=== PATIENT | male | born 2005 | race Caucasian/White ===

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

== ENCOUNTER 2024-01-12 18:32 | Emergency (ER) | payer SELFPAY ==
[2024-01-12 18:45] VITALS: BP 145/76; PULSE 78; RESP 16; TEMP 36.7; O2SAT 96; BMI 32.1
[2024-01-12 19:02] LABS: Basophils % 0.4 %; Eosinophils # 0.1 10^3/uL (0.0-0.8); Eosinophils % 0.8 %; Hematocrit 47.7 % (37-53); Lymphocytes # 2.1 10^3/uL (1.5-6.5); Lymphocytes % 28.5 %; Mean Corpuscular HGB Conc 32.7 g/dL (30-55); Mean Corpuscular Hemoglobin 27.5 pg (27-33); Mean Corpuscular Volume 84.1 fl (82-101); Mean Platelet Volume 11.1 fL (7.4-10.4); Monocytes # 0.6 10^3/uL (0.2-0.9); Monocytes % 7.6 %; Neutrophils # 4.52 10^3/uL (1.8-8.0); Neutrophils % 62.4 %; Nucleated Red Blood Cells % 0 %; Platelet Count 263 10^3/cmm (157-399); Red Blood Count 5.67 10^6/uL (3.85-5.65); Red Cell Distribution Width 13.4 % (12.1-15.1); White Blood Count 7.24 10^3/uL (4.5-13.0)
[2024-01-12 19:21] LABS: Alanine Aminotransferase 43 U/L (0-41); Albumin Level 4.8 g/dL (3.5-5.2); Alkaline Phosphatase 136 U/L (40-130); Anion Gap 16.2 (5-19); Aspartate Amino Transferase 33 U/L (0-40); Blood Urea Nitrogen 9 mg/dL (6-20); Calcium 9.9 mg/dL (8.5-10.5); Carbon Dioxide 26 mmol/L (22-29); Chloride 100 mmol/L (98-107); Creatinine Clr Calc Pharmacy 285.6474; Glomerular Filtration Rate 214.2 mL/min (90-130); Glucose 98 mg/dL (65-115); Lipase 14 U/L (13-60); Osmolality Calculated 285 mOsm/kg (285-295); Potassium 4.2 mmol/L (3.5-5.1); Sodium 138 mmol/L (136-145); Total Bilirubin 0.7 mg/dL (0.15-1.2); Total Protein 7.8 g/dL (6.6-8.7)
--- NOTE | 2024-01-12 19:30 | CTR_ITS ---
PROCEDURE INFORMATION: Exam: CT Abdomen And Pelvis With Contrast Exam date and time: 01/12/2024 7:47 PM Age: 18 years old Clinical indication: Abdominal pain; Additional info: Rlq pain TECHNIQUE: Imaging protocol: Computed tomography of the abdomen and pelvis with contrast. Radiation optimization: All CT scans at this facility use at least one of these dose optimization techniques: automated exposure control; mA and/or kV adjustment per patient size (includes targeted exams where dose is matched to clinical indication); or iterative reconstruction. Contrast material: OMNI 350; Contrast volume: 100 ml; Contrast route: INTRAVENOUS (IV); COMPARISON: CT abdomen pelvis w con* [id number] 03/25/2019 11:07 AM RADIATION DOSE METRICS: Total DLP (mGy-cm): 859 FINDINGS: Liver: Normal. No mass. Gallbladder and biliary ducts: Normal. No calcified stones. No ductal dilation. Pancreas: Normal. No ductal dilation. Spleen: Normal. No splenomegaly. Adrenal glands: Normal. No mass. Kidneys and ureters: Normal. No hydronephrosis. Stomach and bowel: Large rectal stool burden. No evidence of small bowel obstruction. Appendix: Status post appendectomy. Intraperitoneal space: Unremarkable. No free air. No significant fluid collection. Vasculature: Unremarkable. No abdominal aortic aneurysm. Lymph nodes: Unremarkable. No enlarged lymph nodes. Urinary bladder: Unremarkable as visualized. Reproductive: Unremarkable as visualized. Bones/joints: Unremarkable. No acute fracture. Soft tissues: Unremarkable. CT/CT abdomen pelvis w con* [id number] IMPRESSION: No acute findings within the abdomen or pelvis. Large rectal stool burden.
--- NOTE | 2024-01-12 19:37 | ED_ITS ---
HPI - Abdominal Pain 2 General: Chief Complaint: Abdominal Pain Stated Complaint: abd pain Time Seen by Provider: 01/12/24 19:28 Source: patient Mode of arrival: ambulatory History of Present Illness: 18-year-old male states been having abdo shanell pain since yesterday. He states it started in his epigastric region, radiates to his flank currently. Has had some nausea he rates his pain a 6 out of 10 currently denies any worse improving factors denies any fevers. Associated Symptoms: Reports nausea; Denies chills, diarrhea, dysuria, fever(s) and vomiting Related Data Previous Rx's Medication Instructions Recorded linaclotide 145 mcg capsule 145 mcg PO DAILY 30 days #30 caps 11/17/23 (Linzess) fluoxetine 20 mg capsule (Prozac) 20 mg PO DAILY #30 caps 12/15/23 fluoxetine 40 mg capsule (Prozac) 40 mg PO DAILY #30 caps 12/15/23 polyethylene glycol 3350 17 gram 17 g PO DAILY #14 ea 01/12/24 oral powder packet (Miralax) Allergies Allergy/AdvReac Type Severity Reaction Status Date / Time No Known Allergies Allergy Verified 12/15/23 08:42 Review of Systems 2 Const: Denies: fever(s), chills, body aches or change in appetite ENMT: Denies: throat pain or dental pain Card: Denies: chest pain Resp: Denies: dyspnea GI: Reports: abdominal pain and nausea; Denies: vomiting or diarrhea : Denies: dysuria Musc: Denies: neck pain or back pain Skin/Breast: Denies: rash Neuro: Denies: headache(s) PFSH ED 2 PFSH: Medical History Constipation Diarrhea Psychiatric care Obsessive compulsive disorder Generalized anxiety disorder with panic attacks Surgical History History of appendectomy Family History Father CAD (coronary artery disease) Mother Chronic kidney disease (CKD) Diabetes Hyperlipidemia Hypertension Stroke Grandfather Diabetes Hypertension Grandmother Diabetes Hyperlipidemia Hypertension Lung disease asthma Stroke Denies family history of Clotting disorder Dementia Psychiatric illness Anesthesia complication Bleeding disorder Cancer Social History Smoking and tobacco/nicotine status: never used tobacco/nicotine Alcohol intake: never Substance/Drug Use: never Lives independently: Yes Current occupational status: unemployed Physical Exam 2 Const: COMMON NORMALS: no acute distress, patient oriented x3 and healthy appearing HENMT: COMMON NORMALS: normocephalic and atraumatic HEAD & SCALP: n ormocephalic and atraumatic Eye: COMMON NORMALS: conjunctivae normal CONJUNCTIVA: Yes conjunctivae normal Neck/C-Spine: COMMON NORMALS: full ROM and supple Chest: COMMONS NORMALS: normal inspection of the chest Resp: COMMON NORMALS: normal respiratory effort, No retractions, No use of accessory muscles and clear to auscultation bilaterally AUSCULTATION: clear to auscultation bilaterally Cardio: COMMON NORMALS: regular rate, regular rhythm and No murmurs present (Cardio) RATE: regular rate RHYTHM: regular rhythm GI: COMMON NORMALS: Normal to inspection, nondistended, normoactive bowel sounds present, Soft to palpation and no masses PALPATION: Yes Soft to palpation OTHER: mild diffuse tenderness Extremity: COMMON NORMALS: normal to inspection and full ROM Neuro: COMMON NORMALS: patient oriented x3, moves all extremities and no focal motor deficits Psych: COMMON NORMALS: mental status grossly normal, Normal thought process present and cooperative THOUGHT PROCESS: Normal thought process present Skin: COMMON NORMALS: no rashes or lesions noted and no wounds GENERAL SKIN EXAM: no rashes or lesions noted Course 2 Vital Signs: Vital signs: Vital Signs Temperature 98.1 F 01/12/24 18:45 Pulse Rate 82 01/12/24 20:02 Respiratory Rate 16 01/12/24 20:02 Blood Pressure 146/85 01/12/24 20:02 Pulse Oximetry 97 01/12/24 20:02 Oxygen Delivery Me thod Room Air 01/12/24 20:02 MDM - Abdominal Pain Medical Decision Making Patient presents here with abdominal pain CT shows constipation no other findings. He is well-appearing here blood works normal we will place him on MiraLAX he stable for discharge follow-up with PCP return if worsening. Medical Records I reviewed the patient's medical records. Lab Data I reviewed the patient's lab results. 01/12/24 18:54 01/12/24 18:54 Labs/Radiology: Radiology Impressions Abdomen/Pelvis CT 01/12/24 19:30 IMPRESSION: No acute findings within the abdomen or pelvis. Large rectal stool burden. Laboratory Results WBC 7.24 10^3/uL (4.5-13.0) 01/12/24 18:54 RBC 5.67 10^6/uL (3.85-5.65) H 01/12/24 18:54 Hgb 15.60 g/dL (13.2-15.6) 01/12/24 18:54 Hct 47.7 % (37-53) 01/12/24 18:54 MCV 84.1 fl (82-101) 01/12/24 18:54 MCH 27.5 pg (27-33) 01/12/24 18:54 MCHC 32.7 g/dL (30-55) 01/12/24 18:54 RDW 13.4 % (12.1-15.1) 01/12/24 18:54 Plt Count 263 10^3/cmm (157-399) 01/12/24 18:54 MPV 11.1 fL (7.4-10.4) H 01/12/24 18:54 Neut % (Auto) 62.4 % 01/12/24 18:54 Lymph % (Auto) 28.5 % 01/12/24 18:54 [place] % (Auto) 7.6 % 01/12/24 18:54 Eos % (Auto) 0.8 % 01/12/24 18:54 Baso % (Auto) 0.4 % 01/12/24 18:54 Neut # (Auto) 4.52 10^3/uL (1.8-8.0) 01/12/24 18:54 Lymph # (Auto) 2.1 10^3/uL (1.5-6.5) 01/12/24 18:54 [place] # (Auto) 0.6 10^3/uL (0.2-0.9) 01/12/24 18:54 Eos # (Auto) 0.1 10^3/uL (0.0-0.8) 01/12/24 18:54 Baso # (Auto) 0.0 10^3/uL (0.0-0.1) 01/12/24 18:54 Nucleated RBC % (auto) 0 % 01/12/24 18:54 Nucleated RBCs # 0.0 /100WBC 01/12/24 18:54 Sodium 138 mmol/L (136-145) 01/12/24 18:54 Potassium 4.2 mmol/L (3.5-5.1) 01/12/24 18:54 Chloride 100 mmol/L (98-107) 01/12/24 18:54 Carbon Dioxide 26 mmol/L (22-29) 01/12/24 18:54 Anion Gap 16.2 (5-19) 01/12/24 18:54 BUN 9 mg/dL (6-20) 01/12/24 18:54 Creatinine 0.5 mg/dL (0.7-1.2) L 01/12/24 18:54 GFR Calculation 214.2 mL/min (90-130) H 01/12/24 18:54 Glucose 98 mg/dL (65-115) 01/12/24 18:54 Calculated Osmolality 285 mOsm/kg (285-295) 01/12/24 18:54 Calcium 9.9 mg/dL (8.5-10.5) 01/12/24 18:54 Total Bilirubin 0.7 mg/dL (0.15-1.2) 01/12/24 18:54 AST 33 U/L (0-40) 01/12/24 18:54 ALT 43 U/L (0-41) H 01/12/24 18:54 Alkaline Phosphatase 136 U/L (40-130) H 01/12/24 18:54 Total Protein 7.8 g/dL (6.6-8.7) 01/12/24 18:54 Albumin 4.8 g/dL (3.5-5.2) 01/12/24 18:54 Globulin 3.0 g/dL (1.3-4.6) 01/12/24 18:54 Lipase 14 U/L (13-60) 01/12/24 18:54 Amorphous Sediment Not Reportable 01/12/24 20:02 All radiology interpretation(s) finalized by discharge Discharge Plan Discharge Patient Disposition: Home Clinical Impression: Abdominal pain Constipation Qualifiers: Constipation type: unspecified constipation type Qualified Code(s): K59.00 - Constipation, unspecified Condition: Stable Prescriptions: New Miralax 17 gram powder in packet 17 g PO DAILY Qty: 14 0RF No Action fluoxetine [Prozac] 20 mg capsule 20 mg PO DAILY Qty: 30 0RF fluoxetine [Prozac] 40 mg capsule 40 mg PO DAILY Qty: 30 0RF Rx Instructions: Start after 1 month on 20 mg. Linzess 145 mcg capsule 145 mcg PO DAILY 30 Days Qty: 30 11RF Discharge Orders: Discharge ED (Routine); Ordered 01/12/24 Ordered By: Satish Whitaker Referrals: Rakesh Enriquez MD [Primary Care Provider] - 4-7 days Discharge Diet: Advance as tolerated Discharge Activity: Resume usual activity Patient Instructions: Constipation (ED), Abdominal Pain (ED) Coding Level of Care Code ED Electrophonic Engineer for Leticia Alejandro
[2024-01-12] MEDS: sodium chloride 0.9% 1,000 ML 999 ML IV (19:43)
[2024-01-12] MEDS: ondansetron 2 mg/ML SDV 2 mL 4 MG IVP (19:43)
[2024-01-12 19:57] VITALS: BP 131/82; PULSE 80; RESP 16; O2SAT 96
[2024-01-12] MEDS: iohexol 350 mg/mL 500 mL Btl (per mL) IV (19:57)
[2024-01-12 20:02] VITALS: BP 146/85; PULSE 82; RESP 16; O2SAT 97
[2024-01-12 20:18] LABS: Charge for UA Resulting for Rev
[2024-01-12 20:20] LABS: Bilirubin Urine Negative (Negative); Blood Urine Negative (Negative); Glucose Urine UA Negative (Normal); Ketones Urine Negative (Negative); Leukocyte Esterase Urine Negative (Negative); Nitrate Urine Negative (Negative); Protein Urine Negative (Negative); Urine Appearance Clear (CLEAR); Urine Color Yellow (Yellow); pH Urine 7.5 (5-7)
[2024-01-12] MEDS: lactulose oral liq 20 gm/30 mL UDC 30 GM PO (20:34)
[2024-01-12 20:38] LABS: Specific Gravity, Urine 1.032 (1.005-1.030)
[2024-01-12 20:39] VITALS: BP 131/83; PULSE 67; RESP 16; O2SAT 97
== END 2024-01-12 20:58 | disposition home or self-care (01) ==
PROVIDERS: Emergency Provider Emergency Medicine; PCP Family Medicine
DX: K59.00 Constipation, unspecified (principal); R10.13 Epigastric pain
CPT/HCPCS: 36415; 74177; 80053; 81003; 81015; 83690; 85025; 96374; 99285; J2405; J7030

== ENCOUNTER 2024-02-03 00:26 | Emergency (ER) | payer SELFPAY ==
[2024-02-03 00:27] VITALS: BP 121/90; PULSE 69; RESP 18; TEMP 36.4; O2SAT 96; BMI 32.9
--- NOTE | 2024-02-03 00:27 | XRR_ITS ---
PROCEDURE INFORMATION: Exam: XR Abdomen Exam date and time: 02/03/2024 12:34 AM Age: 18 years old Clinical indication: Abdominal pain; Generalized; Prior surgery; Surgery date: 6+ months; Surgery type: [place] TECHNIQUE: Imaging protocol: Radiologic exam of the abdomen. Views: 2 Views. Upright and supine views. COMPARISON: CT abdomen pelvis w con* [id number] 01/12/2024 7:47 PM FINDINGS: Gastrointestinal tract: Normal. No bowel dilation. Intraperitoneal space: Normal. No free air. Bones/joints: Unremarkable for age. XR/XR acute abdomen series [id number] IMPRESSION: No acute findings.
--- NOTE | 2024-02-03 00:33 | ED_ITS ---
HPI - Abdominal Pain 2 General: Chief Complaint: Abdominal Pain Stated Complaint: abd pain Time Seen by Provider: 02/03/24 00:26 History of Present Illness: 18-year-old male with a history of chron ic abdominal issues/irritable bowel and constipation who presents emergency room with abdominal pain. He says he has not had a bowel movement in couple days. Today was different though because he had very severe low abdominal pain and some vomiting. No fevers. Related Data Previous Rx's Medication Instructions Recorded linaclotide 145 mcg capsule 145 mcg PO DAILY 30 days #30 caps 11/17/23 (Linzess) fluoxetine 20 mg capsule (Prozac) 20 mg PO DAILY #30 caps 12/15/23 fluoxetine 40 mg capsule (Prozac) 40 mg PO DAILY #30 caps 12/15/23 polyethylene glycol 3350 17 gram 17 g PO DAILY #14 ea 01/12/24 oral powder packet (Miralax) doxycycline monohydrate 100 mg 100 mg PO BID 10 days #20 caps 01/18/24 capsule magnesium citrate 296 ml PO ONCE #296 mL 02/03/24 ondansetron 8 mg disintegrating 8 mg PO Q6H #14 tabs 02/03/24 tablet polyethylene glycol 3350 17 17 g PO DAILY #510 grams 02/03/24 gram/dose oral powder (Miralax) Allergies Allergy/AdvReac Type Severity Reaction Status Date / Time No Known Allergies Allergy Verified 01/18/24 11:17 Review of Systems 2 Narrative: Constitutional symptoms: Negative except as documented in HPI. Skin symptoms: Negative except as documented in HPI. Eye symptoms: Negative except as documented in HPI. ENMT symptoms: Negative except as documented in HPI. Respiratory symptoms: Negative except as documented in HPI. Cardiovascular symptoms: Negative except as documented in HPI. Gastrointestinal symptoms: Negative except as documented in HPI. Genitourinary symptoms: Negative except as documented in HPI. Musculoskeletal symptoms: Negative except as documented in HPI. Neurologic symptoms: Negative except as documented in HPI. Psychiatric symptoms: Negative except as documented in HPI. Endocrine symptoms: Negative except as documented in HPI. PFSH ED 2 PFSH: Medical History Constipation Diarrhea Psychiatric care Obsessive compulsive disorder Generalized anxiety disorder with panic attacks Surgical History History of appendectomy Family History Father CAD (coronary artery disease) Mother Chronic kidney disease (CKD) Diabetes Hyperlipidemia Hypertension Stroke Grandfather Diabetes Hypertension Grandmother Diabetes Hyperlipidemia Hypertension Lung disease asthma Stroke Denies family history of Clotting disorder Dementia Psychiatric illness Anesthesia complication Bleeding disorder Cancer Social History Smoking and tobacco/nicotine status: never used tobacco/nicotine Alcohol intake: never Substance/Drug Use: never Lives independently: Yes Current occupational status: unemployed Physical Exam 2 Narrative: EXAM NARRATIVE: General: Alert, no acute distress. Skin: Warm, dry. Head: Normocephalic, atraumatic. Neck: Supple, trachea midline. Eye: Extraocular movements are intact. Ears, nose, mouth and throat: mucosa moist. Cardiovascular: Regular, Normal peripheral perfusion. Respiratory: Lungs are clear to auscultation, respirations are non-labored, breath sounds are equal, Symmetrical chest wall expansion. Gastrointestinal: Soft, Nontender, Non distended Musculoskeletal: Normal ROM, no deformity. Neurological: Alert and oriented, No focal neurological deficit observed. Psychiatric: Cooperative, anxious Course 2 Vital Signs: Vital signs: Vital Signs Temperature 97.5 F L 02/03/24 00:27 Pulse Rate 70 02/03/24 02:56 Respiratory Rate 16 02/03/24 02:56 Blood Pressure 113/64 02/03/24 02:56 Pulse Oximetry 98 02/03/24 02:56 Oxygen Delivery Me thod Room Air 02/03/24 00:50 MDM - Abdominal Pain Medical Decision Making Medical decision making: Differential diagnosis including but not limited to and based on the above HPI, review of systems and physical exam: - patient with complaint of constipation: Small bowel obstruction. Gastroparesis. Constipation. Also evaluation for urinary retention, liver disease, renal failure. Orders placed to evaluate differential diagnosis based on the above differential, HPI and physical exam Acute abdominal series: chest x-ray: No acute process. No obvious infiltrates. No pneumothorax. No cardiomegaly. This was reviewed and interpreted by myself the emergency room physician Abdomen x-ray: Nonspecific bowel gas pattern. No evidence of free air or obstruction. This was reviewed and interpreted by myself the emergency room physician. Lab Review: Laboratory results were reviewed and interpreted by myself the emergency room physician. Lab work is unremarkable. No leukocytosis. No anemia. No renal failure. Urinalysis is normal. I reviewed the patient's medical record. Reexamination: Patient remained stable. No increased work of breathing. No altered mental status. No focal motor deficits. Patient still appears fairly anxious. Assessment and plan: Constipation Abdominal pain Dehydration ?Zofran, Toradol and IV fluids - Discharged home - Discussed findings and plan with patient. Answered any questions. - All laboratory values were reviewed and interpreted personally by myself, the ER physician - All imaging was reviewed and interpreted personally by myself, the ER physician. - Evaluation and treatment of this problem were appropriate in the emergency setting Lab Data 02/03/24 00:08 02/03/24 00:08 Labs/Radiology: Radiology Impressions Chest/Abdomen X-ray 02/03/24 00:27 IMPRESSION: No acute findings. Laboratory Results WBC 8.62 10^3/uL (4.5-13.0) 02/03/24 00:08 RBC 5.55 10^6/uL (3.85-5.65) 02/03/24 00:08 Hgb 15.30 g/dL (13.2-15.6) 02/03/24 00:08 Hct 46.2 % (37-53) 02/03/24 00:08 MCV 83.2 fl (82-101) 02/03/24 00:08 MCH 27.6 pg (27-33) 02/03/24 00:08 MCHC 33.1 g/dL (30-55) 02/03/24 00:08 RDW 13.3 % (12.1-15.1) 02/03/24 00:08 Plt Count 301 10^3/cmm (157-399) 02/03/24 00:08 MPV 11.3 fL (7.4-10.4) H 02/03/24 00:08 Neut % (Auto) 41.4 % 02/03/24 00:08 Lymph % (Auto) 46.5 % 02/03/24 00:08 [place] % (Auto) 10.8 % 02/03/24 00:08 Eos % (Auto) 0.7 % 02/03/24 00:08 Baso % (Auto) 0.3 % 02/03/24 00:08 Neut # (Auto) 3.56 10^3/uL (1.8-8.0) 02/03/24 00:08 Lymph # (Auto) 4.0 10^3/uL (1.5-6.5) 02/03/24 00:08 [place] # (Auto) 0.9 10^3/uL (0.2-0.9) 02/03/24 00:08 Eos # (Auto) 0.1 10^3/uL (0.0-0.8) 02/03/24 00:08 Baso # (Auto) 0.0 10^3/uL (0.0-0.1) 02/03/24 00:08 Nucleated RBC % (auto) 0 % 02/03/24 00:08 Nucleated RBCs # 0.0 /100WBC 02/03/24 00:08 Sodium 140 mmol/L (136-145) 02/03/24 00:08 Potassium 3.8 mmol/L (3.5-5.1) 02/03/24 00:08 Chloride 103 mmol/L (98-107) 02/03/24 00:08 Carbon Dioxide 24 mmol/L (22-29) 02/03/24 00:08 Anion Gap 16.8 (5-19) 02/03/24 00:08 BUN 15 mg/dL (6-20) 02/03/24 00:08 Creatinine 0.6 mg/dL (0.7-1.2) L 02/03/24 00:08 GFR Calculation 173.6 mL/min (90-130) H 02/03/24 00:08 Glucose 104 mg/dL (65-115) 02/03/24 00:08 Calculated Osmolality 291 mOsm/kg (285-295) 02/03/24 00:08 Calcium 9.4 mg/dL (8.5-10.5) 02/03/24 00:08 Total Bilirubin 0.5 mg/dL (0.15-1.2) 02/03/24 00:08 AST 32 U/L (0-40) 02/03/24 00:08 ALT 36 U/L (0-41) 02/03/24 00:08 Alkaline Phosphatase 127 U/L (40-130) 02/03/24 00:08 C-Reactive Protein 3.0 mg/L (0.0-4.9) 02/03/24 00:08 Total Protein 7.4 g/dL (6.6-8.7) 02/03/24 00:08 Albumin 4.5 g/dL (3.5-5.2) 02/03/24 00:08 Globulin 2.9 g/dL (1.3-4.6) 02/03/24 00:08 Urine Color Dark yellow (Yellow) A 02/03/24 02:09 Urine Appearance Turbid (CLEAR) A 02/03/24 02:09 Urine pH 5.0 (5-7) 02/03/24 02:09 Ur Specific [place] 1.032 (1.005-1.030) H 02/03/24 02:09 Urine Protein Trace (Negative) A 02/03/24 02:09 Urine Glucose (UA) Negative (Normal) 02/03/24 02:09 Urine Ketones Trace (Negative) 02/03/24 02:09 Urine Blood Negative (Negative) 02/03/24 02:09 Urine Nitrate Negative (Negative) 02/03/24 02:09 Urine Bilirubin 1+ (Negative) H 02/03/24 02:09 Urine Urobilinogen 1.0 mg/dL (Negative) 02/03/24 02:09 Ur Leukocyte Esterase Trace (Negative) A 02/03/24 02:09 Urine RBC None /hpf (0-2) 02/03/24 02:09 Urine WBC None /hpf (0-5) 02/03/24 02:09 Ur Squamous Epith Cells None /hpf (0-5) 02/03/24 02:09 Calcium Oxalate Crystal 0-4 /hpf H 02/03/24 02:09 Amorphous Sediment 3+ /hpf 02/03/24 02:09 Urine Bacteria Trace /hpf (NONE) 02/03/24 02:09 All radiology interpretation(s) finalized by discharge Discharge Plan Discharge Patient Disposition: Home Clinical Impression: Abdominal pain, Constipation Condition: Stable Prescriptions: New ondansetron 8 mg tablet,disintegrating 8 mg PO Q6H Qty: 14 0RF Rx Instructions: Take 1/2-1 tab every 6 hours as needed for nausea and vomiting magnesium citrate Solution 296 ml PO ONCE Qty: 296 0RF Miralax 17 gram/dose powder 17 g PO DAILY Qty: 510 0RF Rx Instructions: Take 1-2 scoops daily for the next 3 months to keep stools soft No Action doxycycline monohydrate 100 mg capsule 100 mg PO BID 10 Days Qty: 20 0RF fluoxetine [Prozac] 20 mg capsule 20 mg PO DAILY Qty: 30 0RF fluoxetine [Prozac] 40 mg capsule 40 mg PO DAILY Qty: 30 0RF Rx Instructions: Start after 1 month on 20 mg. Linzess 145 mcg capsule 145 mcg PO DAILY 30 Days Qty: 30 11RF Miralax 17 gram powder in packet 17 g PO DAILY Qty: 14 0RF Discharge Orders: Discharge ED (Routine); Ordered 02/03/24 Ordered By: Fatemeh Adams Referrals: Rakesh Enriquez MD [Primary Care Provider] - Discharge Diet: Usual diet Discharge Activity: Resume usual activity Patient Instructions: Constipation (ED) Activity Restrictions/Additional Instructions: Thank you for choosing [facility] for your healthcare needs today. Please realize this is an emergency room and that we are providing you with a medical screening exam and this may not be complete and all inclusive of all the testing and or work up that you may need to determine your ailment or severity of your illness. You have been screened and evaluated and felt safe for discharge. Health conditions do change or evolve sometimes and as such it is important that you follow up with your Primary Doctor to be re checked, 3-5 days is a general good time frame for follow up. You are always welcome to return to the ED for re assessment if your symptoms are worsening or you have new concerns Coding Level of Care Code ED Fmd Teacher for Leticia Alejandro
[2024-02-03 00:38] LABS: Basophils % 0.3 %; Eosinophils # 0.1 10^3/uL (0.0-0.8); Eosinophils % 0.7 %; Hematocrit 46.2 % (37-53); Lymphocytes % 46.5 %; Mean Corpuscular HGB Conc 33.1 g/dL (30-55); Mean Corpuscular Hemoglobin 27.6 pg (27-33); Mean Corpuscular Volume 83.2 fl (82-101); Mean Platelet Volume 11.3 fL (7.4-10.4); Monocytes # 0.9 10^3/uL (0.2-0.9); Monocytes % 10.8 %; Neutrophils # 3.56 10^3/uL (1.8-8.0); Neutrophils % 41.4 %; Nucleated Red Blood Cells % 0 %; Platelet Count 301 10^3/cmm (157-399); Red Blood Count 5.55 10^6/uL (3.85-5.65); Red Cell Distribution Width 13.3 % (12.1-15.1); White Blood Count 8.62 10^3/uL (4.5-13.0)
[2024-02-03 00:50] VITALS: BP 121/90; PULSE 67; RESP 16; O2SAT 96
[2024-02-03 00:53] LABS: Alanine Aminotransferase 36 U/L (0-41); Albumin Level 4.5 g/dL (3.5-5.2); Alkaline Phosphatase 127 U/L (40-130); Anion Gap 16.8 (5-19); Aspartate Amino Transferase 32 U/L (0-40); Blood Urea Nitrogen 15 mg/dL (6-20); Calcium 9.4 mg/dL (8.5-10.5); Carbon Dioxide 24 mmol/L (22-29); Chloride 103 mmol/L (98-107); Creatinine Clr Calc Pharmacy 246.4792; Globulin 2.9 g/dL (1.3-4.6); Glomerular Filtration Rate 173.6 mL/min (90-130); Glucose 104 mg/dL (65-115); Osmolality Calculated 291 mOsm/kg (285-295); Potassium 3.8 mmol/L (3.5-5.1); Sodium 140 mmol/L (136-145); Total Bilirubin 0.5 mg/dL (0.15-1.2); Total Protein 7.4 g/dL (6.6-8.7)
[2024-02-03] MEDS: sodium chloride 0.9% 1,000 ML 999 ML IV (02:12)
[2024-02-03] MEDS: ketorolac 30 mg/mL INJ IVP (02:12)
[2024-02-03] MEDS: ondansetron 2 mg/ML SDV 2 mL 4 MG IVP (02:12)
[2024-02-03 02:56] VITALS: BP 113/64; PULSE 70; RESP 16; O2SAT 98
[2024-02-03 03:01] LABS: Bilirubin Urine 1+ (Negative); Blood Urine Negative (Negative); Glucose Urine UA Negative (Normal); Ketones Urine Trace (Negative); Leukocyte Esterase Urine Trace (Negative); Nitrate Urine Negative (Negative); Protein Urine Trace (Negative); Urine Appearance Turbid (CLEAR); Urine Color Dark Yellow (Yellow)
[2024-02-03 03:15] LABS: Amorphous Sediment Urine 3+ /hpf; Bacteria Urine TRACE /hpf; Calcium Oxalate Crystals Urine 0-4 /hpf; Specific Gravity, Urine 1.032 (1.005-1.030)
[2024-02-03 03:16] LABS: Add Urine Culture? No
[2024-02-03 04:07] VITALS: BP 132/75; PULSE 72; O2SAT 99
== END 2024-02-03 04:08 | disposition home or self-care (01) ==
PROVIDERS: Emergency Provider Emergency Medicine; PCP Family Medicine
DX: K59.00 Constipation, unspecified (principal); R10.30 Lower abdominal pain, unspecified
CPT/HCPCS: 74022; 80053; 81001; 85025; 86140; 96361; 96374; 96375; 99285; J1885; J2405; J7030

== ENCOUNTER → 2024-08-02 11:28 | Outpatient (BNVA) | payer OTHER, SELFPAY | PROVIDERS: PCP Family Medicine; Visit Provider Psychiatry & Neurology Psychiatry | DX: F41.1 Generalized anxiety disorder (principal) | CPT/HCPCS: 80061; 83036 ==

== ENCOUNTER → 2024-09-19 12:39 | Outpatient (BNVA) | payer MEDICAID, SELFPAY ==
[2024-08-03 09:41] VITALS: BP 139/94; BMI 32.2
== END ==
PROVIDERS: PCP Family Medicine; Visit Provider Surgery
DX: K59.00 Constipation, unspecified (principal)
CPT/HCPCS: 99214

== ENCOUNTER 2024-10-11 09:56 | Emergency (ER) | payer MEDICAID, SELFPAY ==
[2024-08-03 09:41] VITALS: BP 139/94; BMI 32.2
[2024-10-11 10:01] VITALS: PULSE 83; RESP 16; TEMP 36.7; O2SAT 95; BMI 34.2
--- NOTE | 2024-10-11 10:11 | ED_ITS ---
HPI - Abdominal Pain 2 General: Chief Complaint: Abdominal Pain Stated Complaint: abdominal pains Time Seen by Provider: 10/11/24 10:02 History of Present Illness: 19-year-old male presents emergency room complaining of lower abdominal pain that began just prior to work. Patient reports his irritable bowel his last bowel movement was yesterday has not recently had any diarrhea or constipation denies any medic easy melena hematemesis or coffee-ground emesis earlier this week he had some nausea and vomiting on a couple of episodes no hematemesis. Denies any fever sweats or chills. Still having some mild lower abdominal discomfort Associated Symptoms: Denies chills, dysuria and fever(s) Related Data Previous Rx's ?Medication ?Instructions ?Recorded fluoxetine 40 mg capsule (Prozac) 40 mg PO DAILY #30 c aps 09/03/24 doxycycline hyclate 100 mg capsule 100 mg PO BID 14 da ys #28 caps 09/26/24 promethazine 25 mg tablet 25 mg PO Q6H PRN nausea and 10/11/24 vomiting #20 tabs Allergies Allergy/AdvReac Type Severity Reaction Status Date / Time No Known Allergies Allergy Verified 09/26/24 13:01 Review of Systems 2 Const: Denies: fever(s) or chills Card: Denies: chest pain Resp: Denies: dyspnea GI: Denies: abdominal pain : Denies: dysuria, urinary frequency or urinary urgency Musc: Denies: neck pain or back pain Skin/Breast: Denies: rash PFSH ED 2 PFSH: Medical History Constipation Diarrhea Psychiatric care Obsessive compulsive disorder Generalized anxiety disorder with panic attacks Surgical History History of appendectomy Family History Father CAD (coronary artery disease) Mother Chronic kidney disease (CKD) Diabetes Hyperlipidemia Hypertension Stroke Grandfather Diabetes Hypertension Grandmother Diabetes Hyperlipidemia Hypertension Lung disease asthma Stroke Denies family history of Clotting disorder Dementia Psychiatric illness Anesthesia complication Bleeding disorder Cancer Social History Smoking and tobacco/nicotine status: never used tobacco/nicotine Alcohol intake: never Substance/Drug Use: never Lives independently: Yes Household members: friend(s) Housing: House Marital status: Single Number of children: 0 Highest education level completed: 10th Grade service: No Current occupational status: unemployed Current occupational exposures/hazards: No Pets and animals: No Leisure activites: music and games Sexually active: Yes Do you think of yourself as: Straight/Heterosexual Current gender identity: Male Mireille/Episcopalian: None Special mireille needs: No Agree to transfusion: Yes Physical Exam 2 Const: COMMON NORMALS: no acute distress GENERAL APPEARANCE: cooperative and comfortable ORIENTATION/CONSCIOUSNESS: Yes awake, Yes oriented to person, Yes oriented to place and Yes oriented to time HENMT: COMMON NORMALS: normocephalic, atraumatic and hearing grossly normal bilaterally HEAD & SCALP: normocephalic and atraumatic Resp: COMMON NORMALS: normal respiratory effort, No retractions, No use of accessory muscles and clear to auscultation bilaterally AUSCULTATION: clear to auscultation bilaterally Cardio: COMMON NORMALS: regular rate, regular rhythm and No murmurs present (Cardio) RATE: regular rate RHYTHM: regular rhythm GI: COMMON NORMALS: Soft to palpation and No hepatosplenomegaly present A USCULTATION: Yes normoactive bowel sounds PALPATION: Yes Soft to palpation, No Tenderness to palpation present (GI), No Guarding due to palpation present (GI) and Yes No hepatosplenomegaly present Extremity: COMMON NORMALS: normal to inspection, capillary refill normal, no clubbing, cyanosis or edema, no calf tenderness and no pedal edema Neuro: SENSORIUM/ORIENTATION: Yes oriented to person, Yes oriented to place and Yes oriented to time Skin: COMMON NORMALS: no rashes or lesions noted GENERAL SKIN EXAM: no rashes or lesions noted Course 2 Vital Signs: Vital signs: Vital Signs Temperature 98.1 F 10/11/24 10:01 Pulse Rate 74 10/11/24 13:50 Respiratory Rate 16 10/11/24 10:01 Blood Pressure 128/77 10/11/24 13:50 Pulse Oximetry 96 10/11/24 13:50 Oxygen Delivery Me thod Room Air 10/11/24 13:00 MDM - Abdominal Pain Medical Decision Making Relatively benign abdominal exam with a white count of 5.9. Chemistry unremarkable glucose this morning 95. Urine shows no sign of infection repeat abdominal exam continues to be benign suspect gastroenteritis. Discharge patient home clear liquid diet advance as tolerated return to the emergency room for any further problems. Vital signs reviewed and otherwise stable. Lab Data 10/11/24 10:40 10/11/24 10:40 Labs/Radiology: Laboratory Results WBC 5.99 10^3/uL (4.5-13.0) 10/11/24 10:40 RBC 5.33 10^6/uL (3.85-5.65) 10/11/24 10:40 Hgb 14.70 g/dL (13.2-15.6) 10/11/24 10:40 Hct 44.0 % (37-53) 10/11/24 10:40 MCV 82.6 fl (82-101) 10/11/24 10:40 MCH 27.6 pg (27-33) 10/11/24 10:40 MCHC 33.4 g/dL (30-55) 10/11/24 10:40 RDW 13.2 % (12.1-15.1) 10/11/24 10:40 Plt Count 252 10^3/cmm (157-399) 10/11/24 10:40 MPV 10.5 fL (7.4-10.4) H 10/11/24 10:40 Neut % (Auto) 46.4 % 10/11/24 10:40 Lymph % (Auto) 41.2 % 10/11/24 10:40 [place] % (Auto) 11.2 % 10/11/24 10:40 Eos % (Auto) 0.7 % 10/11/24 10:40 Baso % (Auto) 0.3 % 10/11/24 10:40 Neut # (Auto) 2.78 10^3/uL (1.8-8.0) 10/11/24 10:40 Lymph # (Auto) 2.5 10^3/uL (1.5-6.5) 10/11/24 10:40 [place] # (Auto) 0.7 10^3/uL (0.2-0.9) 10/11/24 10:40 Eos # (Auto) 0.0 10^3/uL (0.0-0.8) 10/11/24 10:40 Baso # (Auto) 0.0 10^3/uL (0.0-0.1) 10/11/24 10:40 Nucleated RBC % (auto) 0 % 10/11/24 10:40 Nucleated RBCs # 0.0 /100WBC 10/11/24 10:40 Sodium 139 mmol/L (136-145) 10/11/24 10:40 Potassium 4.0 mmol/L (3.5-5.1) 10/11/24 10:40 Chloride 103 mmol/L (98-107) 10/11/24 10:40 Carbon Dioxide 25 mmol/L (22-29) 10/11/24 10:40 Anion Gap 15.0 (5-19) 10/11/24 10:40 BUN 17 mg/dL (6-20) 10/11/24 10:40 Creatinine 0.6 mg/dL (0.7-1.2) L 10/11/24 10:40 GFR Calculation 171.8 mL/min (90-130) H 10/11/24 10:40 Glucose 95 mg/dL (65-115) 10/11/24 10:40 Calculated Osmolality 289 mOsm/kg (285-295) 10/11/24 10:40 Calcium 9.7 mg/dL (8.5-10.5) 10/11/24 10:40 Total Bilirubin 0.6 mg/dL (0.15-1.2) 10/11/24 10:40 AST 25 U/L (0-40) 10/11/24 10:40 ALT 36 U/L (0-41) 10/11/24 10:40 Alkaline Phosphatase 110 U/L (40-130) 10/11/24 10:40 Total Protein 7.4 g/dL (6.6-8.7) 10/11/24 10:40 Albumin 4.5 g/dL (3.5-5.2) 10/11/24 10:40 Globulin 2.9 g/dL (1.3-4.6) 10/11/24 10:40 Lipase 16 U/L (13-60) 10/11/24 10:40 Urine Color Yellow (Yellow) 10/11/24 11:08 Urine Appearance Clear (CLEAR) 10/11/24 11:08 Urine pH 6.0 (5-7) 10/11/24 11:08 Ur Specific [place] 1.020 (1.005-1.030) 10/11/24 11:08 Urine Protein Negative (Negative) 10/11/24 11:08 Urine Glucose (UA) Negative (Normal) 10/11/24 11:08 Urine Ketones Negative (Negative) 10/11/24 11:08 Urine Blood Negative (Negative) 10/11/24 11:08 Urine Nitrate Negative (Negative) 10/11/24 11:08 Urine Bilirubin Negative (Negative) 10/11/24 11:08 Urine Urobilinogen 1.0 mg/dL (Negative) 10/11/24 11:08 Ur Leukocyte Esterase Negative (Negative) 10/11/24 11:08 Urine RBC 0-2 /hpf (0-2) 10/11/24 11:08 Urine WBC 0-5 /hpf (0-5) 10/11/24 11:08 Ur Squamous Epith Cells 0-5 /hpf (0-5) 10/11/24 11:08 Amorphous Sediment Not Reportable 10/11/24 11:08 Urine Bacteria None seen /hpf (NONE) 10/11/24 11:08 Hyaline Casts 0-4 /lpf H 10/11/24 11:08 No radiology studies performed this visit Discharge Plan Discharge Patient Disposition: Home Clinical Impression: Gastroenteritis Condition: Stable Prescriptions: New promethazine 25 mg tablet 25 mg PO Q6H PRN (Reason: nausea and vomiting) Qty: 20 0RF No Action doxycycline hyclate 100 mg capsule 100 mg PO BID 14 Days Qty: 28 0RF fluoxetine [Prozac] 40 mg capsule 40 mg PO DAILY Qty: 30 1RF Discharge Orders: Discharge ED (Routine); Ordered 10/11/24 Ordered By: Harrison Jorgensen Referrals: Rakesh Enriquez MD [Primary Care Provider, Family Practice] Discharge Diet: Clear Liquid Discharge Activity: Increase activity as tolerated Patient Instructions: Opioid Safety, Pain Management Activity Restrictions/Additional Instructions: Thank you for choosing [facility] for your healthcare needs today. It is very important that you follow up as instructed or that you return to the Emergency Department should you have concerns or if your condition changes or worsens in any way. You were seen in the emergency room with complaints of nausea vomiting mild abdominal discomfort. Your white count was normal and your exam was unremarkable and there is no sign of acute abdomen on your exam will discharge you home recommend clear liquid diet for the next 24 to 48 hours and follow-up as needed. Print Language: Bengali Coding Level of Care Code ED Bariatric Coordinator for Leticia Alejandro
[2024-10-11 10:48] LABS: Basophils % 0.3 %; Eosinophils % 0.7 %; Lymphocytes # 2.5 10^3/uL (1.5-6.5); Lymphocytes % 41.2 %; Mean Corpuscular HGB Conc 33.4 g/dL (30-55); Mean Corpuscular Hemoglobin 27.6 pg (27-33); Mean Corpuscular Volume 82.6 fl (82-101); Mean Platelet Volume 10.5 fL (7.4-10.4); Monocytes # 0.7 10^3/uL (0.2-0.9); Monocytes % 11.2 %; Neutrophils # 2.78 10^3/uL (1.8-8.0); Neutrophils % 46.4 %; Nucleated Red Blood Cells % 0 %; Platelet Count 252 10^3/cmm (157-399); Red Blood Count 5.33 10^6/uL (3.85-5.65); Red Cell Distribution Width 13.2 % (12.1-15.1); White Blood Count 5.99 10^3/uL (4.5-13.0)
[2024-10-11] MEDS: sodium chloride 0.9% 1,000 ML 999 ML IV (10:49)
[2024-10-11 11:00] VITALS: BP 127/89; PULSE 80; O2SAT 96
[2024-10-11 11:03] LABS: Alanine Aminotransferase 36 U/L (0-41); Albumin Level 4.5 g/dL (3.5-5.2); Alkaline Phosphatase 110 U/L (40-130); Aspartate Amino Transferase 25 U/L (0-40); Blood Urea Nitrogen 17 mg/dL (6-20); Calcium 9.7 mg/dL (8.5-10.5); Carbon Dioxide 25 mmol/L (22-29); Chloride 103 mmol/L (98-107); Creatinine Clr Calc Pharmacy 242.1211; Globulin 2.9 g/dL (1.3-4.6); Glomerular Filtration Rate 171.8 mL/min (90-130); Glucose 95 mg/dL (65-115); Lipase 16 U/L (13-60); Osmolality Calculated 289 mOsm/kg (285-295); Sodium 139 mmol/L (136-145); Total Bilirubin 0.6 mg/dL (0.15-1.2); Total Protein 7.4 g/dL (6.6-8.7)
[2024-10-11 11:20] LABS: Bilirubin Urine Negative (Negative); Blood Urine Negative (Negative); Glucose Urine UA Negative (Normal); Ketones Urine Negative (Negative); Leukocyte Esterase Urine Negative (Negative); Nitrate Urine Negative (Negative); Protein Urine Negative (Negative); Urine Appearance Clear (CLEAR); Urine Color Yellow (Yellow)
[2024-10-11 11:22] LABS: Add Urine Microscopic? YES; Bacteria Urine None Seen /hpf; Hyaline Casts Urine 0-4 /lpf; RBC Urine 0-2 /hpf (0-2); Squamous Epithelial Cell Urine 0-5 /hpf (0-5); WBC Urine 0-5 /hpf (0-5)
[2024-10-11 11:26] LABS: Add Urine Culture? No
[2024-10-11 12:00] VITALS: BP 144/84; PULSE 76; O2SAT 96
[2024-10-11 13:00] VITALS: BP 131/88; PULSE 74; O2SAT 96
[2024-10-11 13:50] VITALS: BP 128/77; PULSE 74; O2SAT 96
== END 2024-10-11 13:52 | disposition home or self-care (01) ==
PROVIDERS: Emergency Provider Family Medicine; PCP Family Medicine
DX: K52.9 Noninfective gastroenteritis and colitis, unspecified (principal)
CPT/HCPCS: 36415; 80053; 81001; 83690; 85025; 96360; 99284; J7030

== ENCOUNTER 2024-11-22 10:01 | Day surgery (SDC) | payer MEDICAID, SELFPAY ==
[2024-08-03 09:41] VITALS: BP 139/94; BMI 32.2
[2024-11-22 10:23] VITALS: BP 119/85; PULSE 102; RESP 17; TEMP 36.6; O2SAT 96
[2024-11-22 10:32] VITALS: BMI 33.0
--- NOTE | 2024-11-22 10:42 | W.PM.OPSFHP ---
Same Day Surgery H&P Indication for Procedure/HPI DATE OF PROCEDURE: November 22, 2024 CHIEF COMPLAINT/INDICATIONFOR SURGICAL PROCEDURE: chronic constipation PREOP DIAGNOSIS: Chronic constipation. PLANNED PROCEDURE: Operation Date: 11/22/24 11:30 Proposed Procedures p Colonoscopy [id number] [id number], K59.04(Not Applicable) - Kenton Sequeira MD Medications/Allergies* Allergies/Adverse Reactions Allergy/AdvReac Type Severity Reaction Status Date / Time No Known Allergies Allergy Verified 09/26/24 13:01 Current Medications: Generic Name Dose Route Start Last Admin Trade Name Freq PRN Reason Stop Dose Admin Sodium Chloride 1,000 mls @ 15 mls/hr 11/22/24 10:16 11/22/24 10:28 Sodium Chloride 0.9% IV 11/23/24 10:15 15 mls/hr .Q24H PRN Administration COLONOSCOPY FLUIDS Pertinent History/Comorbid Conditions* Medical History (Updated 10/19/24 @ 00:00 by CORAL Callejas) Constipation Diarrhea Psychiatric care Obsessive compulsive disorder Generalized anxiety disorder with panic attacks Surgical History (Updated 03/31/22 @ 13:24 by Rakesh Enriquez MD) History of appendectomy Family History (Updated 03/31/22 @ 13:06 by Krystina Pete LPN) Diabetes Mother Grandfather Grandmother CAD (coronary artery disease) Father Hyperlipidemia Mother Grandmother Chronic kidney disease (CKD) Mother Lung disease Grandmother asthma Hypertension Mother Grandfather Grandmother Stroke Mother Grandmother Denies family history of Clotting disorder Dementia Psychiatric illness Anesthesia complication Bleeding disorder Cancer Social History Smoking and tobacco/nicotine status: never used tobacco/nicotine Alcohol intake: never Substance/Drug Use: never Lives independently: Yes Household members: friend(s) Housing: House Marital status: Single Number of children: 0 Highest education level completed: 10th Grade service: No Current occupational status: unemployed Current occupational exposures/hazards: No Pets and animals: No Leisure activites: music and games Sexually active: Yes Do you think of yourself as: Straight/Heterosexual Current gender identity: Male Mireille/Religious: None Special mireille needs: No Agree to transfusion: Yes Pertinent Exam Findings alert, oriented x 3, clear to auscultation bilaterally and regular rate & rhythm Recommendations Surgery/Procedure today Coding Level of Care Code Acute Code for Chg Fwd
--- NOTE | 2024-11-22 10:48 | P.ANESASSM_ITS ---
Pre-Anesthetic Assessment Height/Weight: Height 1.78 m Weight 104.326 kg Temp Pulse Resp BP Pulse Ox O2 Del Method 97.8 F 102 H 17 119/85 96 Room Air 11/22/24 10:23 11/22/24 10:23 11/22/24 10:23 11/22/24 10:23 11/22/24 10:23 11/22/24 10:23 Preop Diagnosis: Chronic constipation. Operation Date: 11/22/24 11:30 Proposed Procedures p Colonoscopy [id number], K59.04(Not Applicable) - Kenton Sequeira MD Was Beta Angeles taken within 24 hours: N/A Was Clonidine taken within 24 hours: N/A Last intake: Intake Last Liquid Date 11/21/24 Last Liquid Time 22:00 Last Solid Date 11/20/24 Last Solid Time 18:00 Social No alcohol and No tobacco Exam alert, oriented x 3, clear to auscultation bilaterally and regular rate & rhythm Airway Submandibular: within normal limits Cervical ROM: within normal limits Mallampati: Class II Dentition: chipped and full History/ROS No significant history except as noted Pulmonary None reported CV/HEM None reported None reported Hepatic None reported GI Gastroesophageal Reflux Disease Metabolic None reported Musc/skel None reported Neuropsych Anxiety OCD Anesthetic Plan Anesthesia: MAC Risk of > 500 ml blood loss (7ml/kg in children): No Medications/Allergies Home Medications ?Medication ?Instructions ?Recorded ?Confirmed ?Last Taken ?Type fluoxetine 40 mg capsule (Prozac) 40 mg PO DAILY #30 c aps 09/03/24 11/19/24 2 Weeks Ago Rx ~11/05/24 promethazine 25 mg tablet 25 mg PO Q6H PRN nausea and 10/11/24 11/19/24 Unknown Rx vomiting #20 tabs Allergies Allergy/AdvReac Type Severity Reaction Status Date / Time No Known Allergies Allergy Verified 09/26/24 13:01 Current Medications Generic Name Dose Route Start Last Admin Trade Name Freq PRN Reason Stop Dose Admin Sodium Chloride 1,000 mls @ 15 mls/hr 11/22/24 10:16 11/22/24 10:28 Sodium Chloride 0.9% IV 11/23/24 10:15 15 mls/hr .Q24H PRN Administration COLONOSCOPY FLUIDS PFSH Anesthesia Medical History (Updated 06/13/25 @ 00:00 by CORAL Callejas) Constipation Diarrhea Psychiatric care Obsessive compulsive disorder Generalized anxiety disorder with panic attacks Surgical History History of appendectomy Family History Father CAD (coronary artery disease) Mother Chronic kidney disease (CKD) Diabetes Hyperlipidemia Hypertension Stroke Grandfather Diabetes Hypertension Grandmother Diabetes Hyperlipidemia Hypertension Lung disease asthma Stroke Denies family history of Clotting disorder Dementia Psychiatric illness Anesthesia complication Bleeding disorder Cancer Social History Smoking and tobacco/nicotine status: never used tobacco/nicotine Alcohol intake: never Substance/Drug Use: never Lives independently: Yes Household members: friend(s) Housing: House Marital status: Single Number of children: 0 Highest education level completed: 10th Grade service: No Current occupational status: unemployed Current occupational exposures/hazards: No Pets and animals: No Leisure activites: music and games Sexually active: Yes Do you think of yourself as: Straight/Heterosexual Current gender identity: Male Mireille/Evangelical: None Special mireille needs: No Agree to transfusion: Yes
[2024-11-22 11:29] VITALS: BP 91/61; PULSE 92; RESP 18; TEMP 36.1; O2SAT 94
[2024-11-22 11:37] VITALS: BP 140/63; PULSE 91; RESP 18; TEMP 36.3; O2SAT 93
--- NOTE | 2024-11-22 12:07 | ANE.PACU2 ---
Inpatient post-anesthesia follow up: Airway intact: Yes Vital signs: Temperature 97.4 F Pulse Rate 91 Respiratory Rate 18 Blood Pressure 140/63 Pulse Oximetry 93 Oxygen Delivery Me thod Room Air Oxygen Flow Rate Fraction of Inspir ed Oxygen Hydration adequate: Yes Nausea and vomiting: No Pain level: 1 Mental status: Baseline
== END 2024-11-22 12:08 | disposition home or self-care (01) ==
PROVIDERS: PCP Family Medicine; Visit Provider Surgery
PROC: 0DJD8ZZ Inspection of Lower Intestinal Tract, Via Natural or Artificial Opening Endoscopic (ICD-10-PCS; CPT 45378; principal; 2024-11-22 11:30)
DX: K59.09 Other constipation (principal); K21.9 Gastro-esophageal reflux disease without esophagitis; Z79.899 Other long term (current) drug therapy
CPT/HCPCS: 36416; 45380; 82962; 88305; J2704; J3490; J7030